=== PATIENT | female | born 1990 | race Native Hawaiian/Other Pacific Islander ===

== ENCOUNTER 2019-01-07 16:40 | Emergency (ER) | payer OTHER ==
[~2019-01-07] VITALS: Ht 162.6 cm; Wt 55.3 kg
[2019-01-07 18:24] VITALS: BP 125/71; TEMP 98
== END 2019-01-07 18:24 | disposition home or self-care (01) ==
LOC: ED 16:40
DX: S22.31XA Fracture of one rib, right side, initial encounter for closed fracture (principal); S20.211A Contusion of right front wall of thorax, initial encounter; W20.8XXA Other cause of strike by thrown, projected or falling object, initial encounter; Y92.89 Other specified places as the place of occurrence of the external cause
CPT/HCPCS: 96372; 99283; J1885

== ENCOUNTER 2019-07-06 18:23 | Emergency (ER) | payer OTHER ==
[~2019-07-06] VITALS: Ht 162.6 cm; Wt 55.3 kg
[2019-07-06 18:35] VITALS: BP 131/70; TEMP 98.5
== END 2019-07-06 19:00 | disposition home or self-care (01) ==
LOC: ED 18:23
DX: L03.211 Cellulitis of face (principal)
CPT/HCPCS: 99281

== ENCOUNTER 2019-07-07 16:26 | Emergency (ER) | payer OTHER ==
[~2019-07-07] VITALS: Ht 162.6 cm; Wt 60.8 kg
[2019-07-07 17:49] LABS: PLATELET COUNT 246 K/uL (152-353)
[2019-07-07 17:54] LABS: POTASSIUM 3.7 mmol/L (3.6-5.2)
[2019-07-07 19:15] VITALS: BP 133/88; TEMP 98.4
== END 2019-07-07 19:15 | disposition home or self-care (01) ==
LOC: ED 16:26
PROVIDERS: Family Medicine
DX: L03.211 Cellulitis of face (principal); S00.86XA Insect bite (nonvenomous) of other part of head, initial encounter; W57.XXXA Bitten or stung by nonvenomous insect and other nonvenomous arthropods, initial encounter; Y92.89 Other specified places as the place of occurrence of the external cause
CPT/HCPCS: 80053; 85027; 96372; 99283; J0696; J2930